=== PATIENT | female | born 1970 | race Caucasian/White ===

== ENCOUNTER 2024-10-28 10:47 | Outpatient (CLI) | payer MEDICAID ==
--- NOTE | 2024-10-29 05:26 | RADIOLOGY REPORT ---
EXAM: CT CT LUMBAR SPINE HISTORY: LOCALIZED SWELLING, MASS AND LUMP, TRUNK COMPARISON: None CTDIvol 24 mGy, DLP 895 mGy*cm. TECHNIQUE: Multiple axial CT images of the spine were obtained using bone algorithm. Axial and brandt l reformatting was done. Bone and soft tissue windows were reviewed. FINDINGS: No evidence of definite acute fracture, spinal dislocation, or significant appearing acute subluxatio n is seen. Suggestion of moderate canal stenosis at L2-L3, L3-L4, L4-L5. Colonic diverticulosis. IMPRESSION: No definite CT evidence of acute fracture or dislocation of the bony lumbar spine. Suggestion of moderate canal stenosis at L2-L3, L3-L4, L4-L5.
== END 2024-10-28 23:59 | disposition home or self-care (01) ==
LOC: RAD 10:47
PROVIDERS: ATTEND Family Medicine
DX: K57.30 Diverticulosis of large intestine without perforation or abscess without bleeding (principal); R22.2 Localized swelling, mass and lump, trunk; M48.061 Spinal stenosis, lumbar region without neurogenic claudication
CPT/HCPCS: 72131